=== PATIENT | female | born 1985 | race Caucasian/White ===

== ENCOUNTER → 2017-11-22 | Outpatient (CLI) | payer OTHER ==
[~2017-11-22] MED LIST: FERR-86 PO; PHEN-873 PO
== END ==
LOC: VAS 08:35
PROVIDERS: ATTEND Physician Assistant Medical
DX: M79.606 Pain in leg, unspecified (principal); R60.0 Localized edema; J45.909 Unspecified asthma, uncomplicated
CPT/HCPCS: 93971

== ENCOUNTER 2018-02-20 16:02 | Outpatient (CLI) | payer OTHER | END 2018-02-20 23:59 | disposition home or self-care (01) | LOC: LAB 16:02 | PROVIDERS: ATTEND Obstetrics & Gynecology | DX: O20.0 Threatened abortion (principal); J45.909 Unspecified asthma, uncomplicated | CPT/HCPCS: 36415; 84144; 84702; 86900; 86901 ==

== ENCOUNTER 2018-03-14 05:35 | Day surgery (SDC) | payer OTHER ==
[~2018-03-14] VITALS: Ht 162.6 cm; Wt 69.0 kg
[~2018-03-14 05:35] MED LIST changes: -PHEN-873 PO; +ceFOXitin 2 GM ADDvantage bag 100 ML IV ONE; +famotidine 20mg tablet PO ONE; +ringers solution, lacted 1,000 ML IV SCH
[2018-03-14] MEDS ORDERED: LIDOcaine 1% (10mg/ml) 2ml vial ONE (06:08)
[2018-03-14] MEDS ORDERED: methylergonovine maleate 0.2mg/ml amp ONE (06:33)
[2018-03-14 06:36] LABS: BASOPHILS # (AUTO) 0.1 X10'3 (0-0.2); BASOPHILS % (AUTO) 1.1 % (0-1); EOSINOPHILS # (AUTO) 0.4 X10'3 (0-0.9); EOSINOPHILS % (AUTO) 8.4 % (0-6); LYMPHOCYTES # (AUTO) 1.7 X10'3 (1.1-4.8); LYMPHOCYTES % (AUTO) 31.5 % (21-51); MEAN CORPUSCULAR HEMOGLOBIN 30.7 PG (27.0-31.0); MEAN CORPUSCULAR HGB CONC 33.6 % (33.0-36.5); MEAN CORPUSCULAR VOLUME 91.2 FL (78-98); MEAN PLATELET VOLUME 6.7 FL (7.4-10.4); MONOCYTES # (AUTO) 0.4 X10'3 (0-0.9); MONOCYTES % (AUTO) 8.4 % (2-12); NEUTROPHILS # (AUTO) 2.7 X10'3 (1.8-7.7); NEUTROPHILS % (AUTO) 50.6 % (42-75); PRE OP HEMATOCRIT 43.4 % (35.0-45.0); PRE OP HEMOGLOBIN 14.6 g/dL (12.0-16.0); PRE OP PLATELET COUNT 216 X10'3 (140-440); RED BLOOD COUNT 4.76 X10'6 (4.20-5.60); RED CELL DISTRIBUTION WIDTH 12.3 % (11.5-14.5)
[2018-03-14 06:49] LABS: ALBUMIN 3.7 G/DL (3.4-5.0); ALBUMIN/GLOBULIN RATIO 1.1 (1.1-1.5); ALKALINE PHOSPHATASE 64 IU/L (46-116); BLOOD UREA NITROGEN 21 MG/DL (7-18); BUN/CREATININE RATIO 22.1 (6.6-38.0); CALCIUM 9.3 MG/DL (8.5-10.1); CHLORIDE 105 MMOL/L (99-107); CREATININE 0.95 MG/DL (0.40-0.90); PRE OP ALT 20 U/L (30-65); PRE OP ANION GAP 9 (8-16); PRE OP AST 16 U/L (10-37); PRE OP BILIRUB, TOTAL 0.3 MG/DL (0.0-1.0); PRE OP GLUCOSE 86 MG/DL (70-104); PRE OP POTASSIUM 3.9 MMOL/L (3.4-5.1); PRE OP SODIUM 141 MMOL/L (135-145); TOTAL CARBON DIOXIDE 27.5 MMOL/L (24-32); TOTAL PROTEIN 7.1 G/DL (6.4-8.2); eGFR 69 ML/MIN
[2018-03-14] MEDS ORDERED: midazolam 2 mg/2 ml injection ONE (07:17)
[2018-03-14] MEDS ORDERED: fentaNYL/PF 50MCG/1 ML 2ML syringe ONE (07:22)
[2018-03-14] MEDS ORDERED: propofol inj 20 ML IV ONE (07:23)
[2018-03-14] MEDS ORDERED: LIDOcaine 2% (20mg/ml) 5ml vial ONE (07:23)
[2018-03-14] MEDS ORDERED: ondansetron/PF 4mg/2ml inj ONE (07:36)
[2018-03-14] MEDS ORDERED: sevoflurane 250ml liquid IH ONE (07:36)
[2018-03-14] MEDS ORDERED: dexamethasone sod phosphate 4mg/ml inj. ONE (07:44)
[2018-03-14 07:49] VITALS: BP 110/73
[2018-03-14 07:54] VITALS: BP 110/73
[2018-03-14 08:10] VITALS: BP 119/78
[2018-03-14] MEDS ORDERED: oxyCODONE/APAP 5-325mg tablet PO ONE (08:10)
[2018-03-14 08:20] VITALS: BP 113/78
[2018-03-14] MEDS ORDERED: ringers solution, lacted 1,000 ML IV SCH (08:24)
[2018-03-14] MEDS ORDERED: morphine 4 MG/ML inj SYRINge IV PRN ×2 (08:25)
[2018-03-14] MEDS ORDERED: ondansetron/PF 4mg/2ml inj IV PRN (08:25)
[2018-03-14] MEDS ORDERED: meperidine/PF 25mg/ml syringe IV PRN ×3 (08:25)
[2018-03-14] MEDS ORDERED: proCHLORperazine 10 MG/2 ml inj IV PRN (08:25)
[2018-03-14 08:30] VITALS: BP 111/64
[2018-03-14 08:40] VITALS: BP 103/64
== END 2018-03-14 08:50 | disposition home or self-care (01) ==
LOC: PAS 05:35
PROVIDERS: ATTEND Obstetrics & Gynecology
DX: O03.4 Incomplete spontaneous abortion without complication (principal); F32.9 Major depressive disorder, single episode, unspecified; G43.909 Migraine, unspecified, not intractable, without status migrainosus; J45.998 Other asthma; Z98.890 Other specified postprocedural states; Z90.89 Acquired absence of other organs; Z72.89 Other problems related to lifestyle; Z79.899 Other long term (current) drug therapy
CPT/HCPCS: 36415; 59812; 80053; 85025; 86885; 86900; 86901; A6255; J0694; J1100; J2001; J2210; J2250; J2405; J2704; J3010; J3490; J7120

== ENCOUNTER 2018-06-07 12:24 | Outpatient (CLI) | payer OTHER | END 2018-06-07 23:59 | disposition home or self-care (01) | LOC: LAB 12:24 | PROVIDERS: ATTEND Obstetrics & Gynecology | DX: O20.0 Threatened abortion (principal); N96 Recurrent pregnancy loss; N91.0 Primary amenorrhea; G43.909 Migraine, unspecified, not intractable, without status migrainosus; J45.909 Unspecified asthma, uncomplicated | CPT/HCPCS: 36415; 84702 ==

== ENCOUNTER 2018-06-09 15:15 | Emergency (ER) | payer OTHER ==
[~2018-06-09] VITALS: Ht 162.6 cm; Wt 69.1 kg
[2018-06-09 15:21] VITALS: BP 148/86
== END 2018-06-09 18:30 | disposition home or self-care (01) ==
LOC: ER 15:15
DX: O20.0 Threatened abortion (principal); O26.891 Other specified pregnancy related conditions, first trimester; G43.909 Migraine, unspecified, not intractable, without status migrainosus; Z3A.01 Less than 8 weeks gestation of pregnancy
CPT/HCPCS: 36415; 76801; 84702; 99285

== ENCOUNTER 2018-07-28 11:05 | Outpatient (CLI) | payer OTHER ==
[2018-07-28 12:19] LABS: BASOPHILS # (AUTO) 0.1 X10'3 (0-0.2); EOSINOPHILS # (AUTO) 0.2 X10'3 (0-0.9); EOSINOPHILS % (AUTO) 2.5 % (0-6); HEMATOCRIT 44.6 % (35.0-45.0); HEMOGLOBIN 14.9 g/dl (12.0-16.0); LYMPHOCYTES # (AUTO) 1.8 X10'3 (1.1-4.8); LYMPHOCYTES % (AUTO) 23.3 % (21-51); MEAN CORPUSCULAR HEMOGLOBIN 30.4 PG (27.0-31.0); MEAN CORPUSCULAR HGB CONC 33.4 % (33.0-36.5); MEAN CORPUSCULAR VOLUME 91.1 FL (78-98); MEAN PLATELET VOLUME 7.4 FL (7.4-10.4); MONOCYTES # (AUTO) 0.4 X10'3 (0-0.9); MONOCYTES % (AUTO) 5.6 % (2-12); NEUTROPHILS # (AUTO) 5.2 X10'3 (1.8-7.7); NEUTROPHILS % (AUTO) 67.6 % (42-75); PLATELET COUNT 205 X10'3 (140-440); RED CELL DISTRIBUTION WIDTH 13.7 % (11.5-14.5); WHITE BLOOD COUNT 7.7 X10'3 (4.5-11.0)
[2018-07-28 15:14] LABS: HIV ANTIBODY 1&2 RAPID NON-REACTIVE (Neg)
[2018-07-29 05:21] LABS: HBSAG SCREEN Negative (Negative)
[2018-07-29 06:17] LABS: RPR Non Reactive (Non Reactive)
== END 2018-07-28 23:59 | disposition home or self-care (01) ==
LOC: LAB 11:05
PROVIDERS: ATTEND Obstetrics & Gynecology
DX: Z34.91 Encounter for supervision of normal pregnancy, unspecified, first trimester (principal)
CPT/HCPCS: 36415; 83036; 85025; 86592; 86703; 86762; 86885; 86900; 86901; 87088; 87340